=== PATIENT | female | born 1940 | race Caucasian/White ===

== ENCOUNTER 2018-06-02 11:05 | Emergency (ER) | payer MEDICARE ==
[~2018-06-02] VITALS: Ht 167.6 cm; Wt 54.4 kg
[2018-06-02 11:16] VITALS: BP 156/82
[2018-06-02] MEDS ORDERED: NKM (11:21)
--- NOTE | 2018-06-02 12:05 | Emergency Room Report ---
History of Present Illness General Chief Complaint: Medication Refill Present Illness HPI 77-year-old female patient presents the ER requesting Tamiflu prescription. Patient reports that her daughter was in the ER here at [facility] yesterday and was diagnosed with influenza. Patient is requesting prophylactic Tamiflu. Patient states she is not expensing any symptoms at this time. Denies fever, chest pain, shortness of breath, abdominal pain. Patient afebrile in ER. States did not receive flu vaccine this year. Denies other aggravating or relieving factors. Denies other acute complaints at this time. Allergies: Coded Allergies: No Known Allergies (Unverified , 06/02/18) Patient History Past Medical History: see triage record Last Menstrual Period: n/a Reviewed Nursing Documentation: PMH: Agreed; PSxH: Agreed Nursing Documentation-PMH Hx Asthma: Yes - bronchitis Review of Systems All Other Systems: negative except mentioned in HPI Physical Exam Vital Signs Date Time Temp Pulse Resp B/P (MAP) Pulse Ox O2 Delivery O2 Flow Rate FiO2 06/02/18 11:16 98.1 80 18 156/82 96 Room Air Sp02 EP Interpretation: reviewed, normal General Appearance: well appearing, no apparent distress, alert, GCS 15, non- toxic Head: normocephalic, atraumatic ENT: hearing grossly normal, normal pharynx, no angioedema, normal voice, uvula midline, moist mucus membranes Neck: full range of motion, no bony tend Respiratory: lungs clear, normal breath sounds, no rhonchi, no respiratory distress, no accessory muscle use, no wheezing, speaking full sentences Cardiovascular #1: regular rate, rhythm, no edema Gastrointestinal: non tender, soft, no mass, non-distended, no guarding, no rebound Musculoskeletal: back normal, digits/nails normal, gait/station normal, normal range of motion, non-tender Neurologic: alert, oriented x3, responsive, motor strength/tone normal, sensory intact Skin: no rash Medical Decision Making PA Attestation Dr. Cervantes is my supervising Physician whom patient management has been discussed with. Diagnostic Impression: Primary Impression: Exposure to influenza ER Course Pt. presents to the ED requesting Tamiflu prescription due to patient living with someone currently diagnosed with influenza. Denies symptoms. Ddx considered but are not limited to medication refill, influenza, viral URI. Vital signs: are WNL, pt. is afebrile ER COURSE: Physical exam benign, lungs clear to auscultation, no wheezes rhonchi or rale. Will provide patient with prescription for Tamiflu due to possible exposure to influenza. Patient not receive flu vaccine this year. ER precautions given. Drink plenty of fluids, take Tylenol or Motrin for pain and fever symptoms if they present. DISCHARGE: At this time pt is stable for d/c to home. Patient is resting comfortably, in no acute distress, nontoxic appearing, talking without difficulty. Patient to take medications as instructed Will provide with patient care instructions and any necessary prescriptions. Care plan and follow-up instructions provided. Patient instructed to follow-up with primary care provider in 3 - 5 days. Patient questions asked and answered. Patient reports understanding and agreement to treatment plan. ER precautions given. Patient instructed to return to ER immediately for any new or worsening of symptoms including but not limited to increasing SOB, persistent fever, chest pain, intractable vomiting. - Please note that this Emergency Department Report was dictated using [employer] software, occasionally this can lead to erroneous entry secondary to interpretation by the dictation equipment. Last Vital Signs Date Time Temp Pulse Resp B/P (MAP) Pulse Ox O2 Delivery O2 Flow Rate FiO2 06/02/18 11:16 98.1 18 156/82 96 Room Air 06/02/18 11:16 80 Disposition: HOME, SELF-CARE Condition: Stable Scripts Oseltamivir Phosphate (Tamiflu) 75 Mg Capsule 75 MG ORAL TWICE A DAY for 5 Days, #10 CAP Prov: Dion Wells 06/02/18 Patient Instructions: Influenza, Adult, [id number] Additional Instructions: Followup with primary care provider in 3 -5 days. Take Tylenol or Motrin for pain and fever symptoms as they present. Drink plenty of fluids. Take medications as directed. Patient questions asked and answered. ER precautions given, patient instructed to return to ER immediately for any new or worsening of symptoms. Dion Wells Jun 02, 2018 12:05
[2018-06-02] MEDS ORDERED: TAMIFLU75 MG ORAL (12:10)
[2018-06-02 12:15] VITALS: BP 152/80
--- NOTE | 2018-06-02 12:15 | NUR ---
ER DISCHARGE NOTE: Patient is cleared to be discharged per ERMD, pt is aox4, on room air, with stable vital signs. pt was given dc and prescription instructions, pt was able to verbalize understanding, pt id band removed. pt is able to ambulate with steady gait. pt took all belongings.
== END 2018-06-02 12:15 | disposition home or self-care (01) ==
LOC: EMR 11:50
DX: Z20.828 Contact with and (suspected) exposure to other viral communicable diseases (principal)
CPT/HCPCS: 99282